=== PATIENT | male | born 1975 | race Caucasian/White ===

== ENCOUNTER 2019-11-17 01:15 | Day surgery (SDC) | payer BC, SELFPAY ==
[2019-11-14 15:45] VITALS: BMI 23.0
[2019-11-17 09:40] VITALS: BP 142/91; PULSE 74; RESP 20; TEMP 36.4; O2SAT 100
--- NOTE | 2019-11-17 09:42 | P.PNAN_ITS ---
Anes - Initial Pre Proc Eval Procedure: Operation Date: 11/17/19 10:30 Proposed Procedures p Colonoscopy - Oscar Morocho MD Date/Time: 11/17/19 09:42 Surgeon: Oscar Morocho MD Pre Op Diagnosis: blood in stool Patient Data Age: 44 Gender: M Height: 5 ft 10 in Weight: 72.7 kg Allergies Allergy/AdvReac Type Severity Reaction Status Date / Time Sulfa (Sulfonamide Allergy Intermediate Hives Verified 11/14/19 15:32 Antibiotics) sulfanilamide Allergy Intermediate Rash Verified 11/14/19 15:31 Home Medications Medication Instructions Recorded Confirmed Type pantoprazole 40 mg tablet,delayed 40 mg PO QAM #30 tablet 09/20/19 11/14/19 Rx release Patient hx anesthesia problems: none Family hx anesthesia problems: none [facility] Past Medical History Medical History (Updated 11/17/19 @ 09:42 by Juan Miguel Morse MD) GERD (gastroesophageal reflux disease) GRZEGORZ (obstructive sleep apnea) Social History Social History Smoking status: Former smoker Second hand tobacco smoke exposure: No Alcohol intake: current Anes - Eval Final PreProcedure Day of Procedure 11/17/19 09:42 Patient weight: normal Heart: regular rate and rhythm Lungs: clear to auscultation Airway: Mallampati scale class II Neurological: alert and oriented Last oral intake: >/= 8 hours ASA classification: II Emergent: no Anesthetic plan: proceed Anesthesia type and monitoring: general GIVS and standard monitoring Informed Consent: The patient's anesthetic plan and its attendant risks and benefits were discussed with the patient/family/POA. Questions were solicited and answers provided to the satisfaction of the patient/family/POA.
[2019-11-17] MEDS: LACTATED RINGERS 1,000 ML 150 ML IV CONT (09:52)
--- NOTE | 2019-11-17 10:19 | PM.HPGS ---
History of Present Illness History of Present Illness Consent: Risks, benefits, and alternatives have been discussed and questions answered. Patient agrees to proceed with procedure. Chief complaint: blood in stool Narrative: Sheng Nick is a 44 year old male referred because of rectal bleeding and a change in bowel habits. For the past month he has had 4-6 soft bowel movements per day. He sees bright red blood with almost every bowel movement. He also experiences rectal pain with passage of stool which is generally soft. He has also had pain in the left lower quadrant for the past couple of weeks PMFSH Past Medical History Medical History GERD (gastroesophageal reflux disease) GRZEGORZ (obstructive sleep apnea) Family History Family History Grandparent Cerebrovascular accident Social History Social History Smoking status: Former smoker Second hand tobacco smoke exposure: No Alcohol intake: current Meds Home Medications and Allergies Home Medications Medication Instructions Recorded Confirmed Type pantoprazole 40 mg tablet,delayed 40 mg PO QAM #30 tablet 09/20/19 11/17/19 Rx release Allergies Allergy/AdvReac Type Severity Reaction Status Date / Time Sulfa (Sulfonamide Allergy Intermediate Hives Verified 11/17/19 09:47 Antibiotics) Vital Signs Vital Signs - 24 hr 11/17/19 09:40 Temperature 36.4 C Pulse Rate 74 Respiratory Rate 20 Blood Pressure 142/91 H Pulse Oximetry 100 Exam Resp: Auscultation: clear to auscultation bilaterally Cardio: Rate: regular rate Rhythm: regular rhythm GI: GI Palp: Yes Soft to palpation and No Tenderness to palpation present (GI) Assessment and Plan Assessment and plan (1) Blood in stool: Code(s): K92.1 - Melena Status: Acute Assessment and Plan: Colonoscopy with possible biopsy or polypectomy or cautery or injection of substances.
[2019-11-17 10:40] VITALS: BP 92/54; PULSE 70; RESP 12; O2SAT 98
[2019-11-17 10:50] VITALS: BP 90/57; PULSE 66; RESP 12; O2SAT 98
[2019-11-17 11:00] VITALS: BP 118/73; PULSE 57; RESP 14; O2SAT 100
== END 2019-11-17 11:15 | disposition home or self-care (01) ==
PROVIDERS: PCP Family Medicine; Visit Provider Internal Medicine Gastroenterology
PROC: 0DJD8ZZ Inspection of Lower Intestinal Tract, Via Natural or Artificial Opening Endoscopic (ICD-10-PCS; CPT 45378; principal; 2019-11-17 10:30)
DX: K60.2 Anal fissure, unspecified (principal); K57.30 Diverticulosis of large intestine without perforation or abscess without bleeding; K21.9 Gastro-esophageal reflux disease without esophagitis; G47.33 Obstructive sleep apnea (adult) (pediatric); Z87.891 Personal history of nicotine dependence
CPT/HCPCS: 45378; J2704; J7120